=== PATIENT | male | born 1960 | race Caucasian/White ===

== ENCOUNTER 2017-01-20 10:55 | Emergency (ER) | payer OTHER ==
[~2017-01-20] VITALS: Ht 175.3 cm; Wt 117.5 kg
[~2017-01-20 10:55] MED LIST: ALEVE220 MG PO; FLECAINIDE ACE100 MG PO; WARFARIN SODIUM5 MG PO
[2017-01-20 11:50] LABS: BASOPHIL COUNT 0.1 K/uL (0-0.1); EOSINOPHIL (%) 4.9 % (0-5); EOSINOPHIL COUNT 0.5 K/uL (0-0.3); IMMATURE GRANULOCYTE (%) 0.7 % (0.0-0.7); IMMATURE GRANULOCYTE COUNT 0.1 K/uL; INSTRUMENT ABS NEUTROPHIL CT 6.4 K/uL; LYMPHOCYTE COUNT 1.5 K/uL (1.0-2.8); MCH 28.8 PG (29.0-34.0); MCHC 32.7 G/DL (30.0-36.0); MCV 88.2 FL (86-99); MEAN PLAT.VOLUME 9.8 uM^3 (9.0-12.4); MONOCYTE COUNT 0.7 K/uL (0-0.8); NEUTROPHIL (%) 70.1 % (45-76); NEUTROPHIL COUNT 6.4 K/uL (1.8-6.4); PLATELET COUNT 196 K/uL (156-360); RBC DIS.WIDTH-CV 12.2 % (11.8-14.6); RED BLOOD COUNT 4.65 M/uL (4.00-5.50); WHITE BLOOD COUNT 9.2 K/uL (4.1-10.2)
[2017-01-20 12:01] LABS: CHLORIDE 105 mEq/L (99-109); POTASSIUM 4.2 mEq/L (3.7-5.4); SODIUM 139 mEq/L (136-147)
[2017-01-20 12:03] LABS: GLUCOSE 117 mg/dL (70-99)
[2017-01-20 12:04] LABS: ANION GAP 7 MEQ/L (2-14)
[2017-01-20 12:07] LABS: GFR ESTIMATE (CALCULATED) > 59 mL/min/; UREA NITROGEN (BUN) 11 mg/dL (9-23)
[2017-01-20 14:19] VITALS: BP 155/94
== END 2017-01-20 14:21 | disposition home or self-care (01) ==
LOC: EME 10:55
PROC: 0C96XZZ Drainage of Lower Gingiva, External Approach (ICD-10-PCS; principal; 2017-01-20)
DX: K04.7 Periapical abscess without sinus (principal); Z96.642 Presence of left artificial hip joint
CPT/HCPCS: 80048; 85025; 99281; 99284

== ENCOUNTER 2017-03-04 09:29 | Emergency (ER) | payer OTHER ==
[~2017-03-04] VITALS: Ht 175.3 cm; Wt 112.9 kg
[2017-03-04 11:07] VITALS: BP 110/68
== END 2017-03-04 11:08 | disposition home or self-care (01) ==
LOC: EME 09:29
PROC: 0C95XZZ Drainage of Upper Gingiva, External Approach (ICD-10-PCS; principal; 2017-03-04)
DX: K04.7 Periapical abscess without sinus (principal); Z96.642 Presence of left artificial hip joint; Z79.01 Long term (current) use of anticoagulants
CPT/HCPCS: 99281; 99283

== ENCOUNTER 2017-05-09 08:27 | Day surgery (SDC) | payer OTHER ==
[~2017-05-09] VITALS: Ht 172.7 cm; Wt 113.4 kg
[~2017-05-09 08:27] MED LIST changes: +XARELTO20 MG PO
[2017-05-09] MEDS ORDERED: CARDIZEM CD,CA120 MG PO (09:05)
== END 2017-05-09 11:57 | disposition home or self-care (01) ==
LOC: CATH 08:27
PROC: 5A2204Z Restoration of Cardiac Rhythm, Single (ICD-10-PCS; principal; 2017-05-09)
DX: I48.0 Paroxysmal atrial fibrillation (principal); F10.10 Alcohol abuse, uncomplicated; G47.30 Sleep apnea, unspecified
CPT/HCPCS: 93005

== ENCOUNTER 2017-06-20 09:32 | Day surgery (SDC) | payer OTHER ==
[~2017-06-20] VITALS: Ht 175.3 cm; Wt 113.0 kg
[~2017-06-20 09:32] MED LIST changes: +AMIODARONE HCL200 MG PO; +CARDIZEM CD,CA120 MG PO
== END 2017-06-20 11:35 | disposition home or self-care (01) ==
LOC: CATH 09:32
PROC: 5A2204Z Restoration of Cardiac Rhythm, Single (ICD-10-PCS; principal; 2017-06-20)
DX: I48.0 Paroxysmal atrial fibrillation (principal); G47.30 Sleep apnea, unspecified; F10.10 Alcohol abuse, uncomplicated; I34.0 Nonrheumatic mitral (valve) insufficiency; Z79.82 Long term (current) use of aspirin
CPT/HCPCS: 93005